=== PATIENT | male | born 1950 | race Caucasian/White ===

== ENCOUNTER 2020-01-26 14:27 | Emergency (ER) | payer SELFPAY ==
[~2020-01-26] VITALS: Ht 172.7 cm; Wt 86.2 kg
--- NOTE | 2020-01-26 15:15 | NUR ---
Patient awake alert non distress agrees for naso swab obtained double bag ans send to lab
--- NOTE | 2020-01-26 15:17 | NUR ---
ok to DC home per Dr. Arias after the test covid swab
[2020-01-26 15:19] VITALS: BP 126/70
== END 2020-01-26 15:28 | disposition home or self-care (01) ==
LOC: ER 14:31
DX: Z20.828 Contact with and (suspected) exposure to other viral communicable diseases (principal); N40.0 Benign prostatic hyperplasia without lower urinary tract symptoms
CPT/HCPCS: 36415